=== PATIENT | male | born 1960 | race Caucasian/White ===

== ENCOUNTER 2018-07-06 07:15 | Emergency (ER) | payer OTHER ==
[2018-07-06 07:29] VITALS: BP 150/81
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
== END 2018-07-06 09:15 | disposition home or self-care (01) ==
LOC: UCEAST 07:15
DX: M75.31 Calcific tendinitis of right shoulder (principal); M19.011 Primary osteoarthritis, right shoulder; M48.02 Spinal stenosis, cervical region; F17.210 Nicotine dependence, cigarettes, uncomplicated
CPT/HCPCS: 72050; 73050; 99203; G0463

== ENCOUNTER 2018-11-10 05:27 | Day surgery (SDC) | payer OTHER ==
[~2018-11-10 05:27] MED LIST: Buffered Lidocaine 1% SYRIN* 1 ML/SYRINGE INTRADERM ONE
[2018-11-10] MEDS ORDERED: Lactated Ringers 1000 ML Bag* 1,000 ML IV SCH (06:00)
[2018-11-10] MEDS ORDERED: Dexamethasone IV* 4 MG/ML 1 ML (4 MG) IV SLOW PU ONE (06:00)
[2018-11-10] MEDS ORDERED: Famotidine IV* 10 MG/ML 2 ML (20 mg) IV ONE (06:00)
[2018-11-10] MEDS ORDERED: Dexamethasone IV* 4 MG/ML 1 ML (4 MG) ONE (06:12)
[2018-11-10] MEDS ORDERED: Famotidine IV* 10 MG/ML 2 ML (20 mg) ONE (06:12)
[2018-11-10] MEDS ORDERED: ceFAZolin 2 GM in NS PREMIX(*) 2 GM/100 ML BAG IVPB ONE (06:12)
[2018-11-10] MEDS ORDERED: Bupivacaine 0.5%* 50 ML VIAL ONE (06:45)
[2018-11-10] MEDS ORDERED: EPINEPHRINE 1 MG/ML 1 ML VIAL ONE (06:45)
[2018-11-10] MEDS ORDERED: ROPIVACAINE 5 MG/ML 30 ML BTL (0.5%) ONE (07:09)
[2018-11-10] MEDS ORDERED: fentaNYL* 50 MCG/ML 2 ML VIAL (100 MCG VIAL) ONE ×2 (07:10→07:47)
[2018-11-10] MEDS ORDERED: Midazolam* 1 MG/ML 5 ML VIAL (5 MG) ONE (07:10)
[2018-11-10] MEDS ORDERED: Atracurium* 10 MG/ML 10 ML VIAL ONE (07:10)
[2018-11-10] MEDS ORDERED: Propofol* 10 MG/ML 20 ML BTL ONE (07:11)
[2018-11-10] MEDS ORDERED: Lidocaine 2% PF * 5 ML VIAL ONE (07:11)
[2018-11-10] MEDS ORDERED: Ondansetron INJ* 2 MG/ML VIAL ONE (07:11)
[2018-11-10] MEDS ORDERED: HYDROmorphone INJ1* 1 MG/ML SYRINGE IV PRN (08:23)
[2018-11-10] MEDS ORDERED: fentaNYL* 50 MCG/ML 2 ML VIAL (100 MCG VIAL) IV PRN (08:23)
[2018-11-10] MEDS ORDERED: Ondansetron INJ* 2 MG/ML VIAL IV PRN (08:23)
[2018-11-10] MEDS ORDERED: oxyCODONE/Acetamin 5/325 MG* TAB PO PRN (08:23)
[2018-11-10] MEDS ORDERED: Naloxone* 0.4 MG/ML 1 ML VIAL IV PRN (08:23)
[2018-11-10] MEDS ORDERED: DiMENhydriNATE IV* 50 MG/ML VIAL IV PUSH PRN (08:23)
[2018-11-10 12:20] VITALS: BP 135/84
--- NOTE | 2018-11-12 02:07 | OP ---
DATE OF OPERATION: 11/10/18 - [facility] DATE OF : 64 SURGEON: Dr. Rony Longoria. INSOLE AND OUTSOLE SPLITTER: MAUDE Nichols. A physician gynecological assistant was required for the length of procedure for help with positioning, retraction, and closure. ANESTHESIOLOGIST: Dr. Lopez. ANESTHESIA: General anesthesia, regional interscalene block anesthesia. PRE-OP DIAGNOSES: 1. Right shoulder massive rotator cuff tendon retear with significant retraction. 2. History of prior right shoulder rotator cuff tendon repair, supraspinatus, open, by another surgeon. 3. Right shoulder subacromial impingement and bursitis. 4. Right shoulder acromioclavicular joint arthritis. 5. Right shoulder possible biceps tendinitis. POST-OP DIAGNOSES: 1. Right shoulder massive rotator cuff tendon retear with significant retraction, supraspinatus, infraspinatus. 2. History of prior right shoulder rotator cuff tendon repair, supraspinatus, by another surgeon. 3. Right shoulder subacromial impingement and bursitis. 4. Right shoulder acromioclavicular joint osteoarthritis. 5. Right shoulder biceps tendinitis, significant. OPERATIVE PROCEDURE: 1. Right shoulder arthroscopic rotator cuff tendon repair, massive, double row , supraspinatus, infraspinatus, with REGENETEN Page [employer] Nephew biologic patch, posterior interval slide. 2. Modifier 22 for an unusual or complex procedure. I included this because of the very retracted nature of the patient's infraspinatus tendon tear. It was very small and retracted to medial of the glenoid. By doing a significant debridement superior and inferior to the tendon as well as the posterior interval slide, I was able to mobilize it sufficiently to the humeral head. As well besides placing 5 anchors, I added a REGENETEN biologic patch. For these reasons, this was much more than a standard rotator cuff repair. 3. Right shoulder arthroscopic subacromial decompression. 4. Right shoulder arthroscopic distal clavicle resection. 5. Right shoulder arthroscopic biceps tendon release. ANTIBIOTICS: 2 g Ancef IV. IV FLUIDS: See Anesthesia note. SFJH-FM-FLUC TIME: 176 minutes. ARTHROSCOPY FLUID UTILIZED: 18 bags each with 3 L for a total of 54 L. SPECIMEN: None. IMPLANTS: Medial row consisted of Arthrex 5.5 mm anchor double loaded with FiberTape for the infraspinatus. For the supraspinatus, there were 2 medial row anchors consisting of Arthrex 5.5 mm with two FiberTape and Arthrex 4.75 mm with double-loaded FiberTape. Each of the lateral row anchors were 4.75 mm knotless anchors. I used a Page and Nephew REGENETEN biologic patch. ESTIMATED BLOOD LOSS: Minimal. COMPLICATIONS: None. 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 Pendleton. The patient had had prior rotator cuff repair on the right shoulder by Dr. Guardado in the distant past. That was of the supraspinatus. The patient works at a [employer] and is a smoker of 3 to 4 cigarettes per day. I was made sure based on the patient's MRI imaging or his exam and his history of prior surgery that he would have a repairable rotator cuff tear. Therefore, I prepared to have a superior capsular repair graft ready. I also booked him for possible rotator cuff repair. Given his smoking history and revision history, I also had a biologic patch available to supplement any rotator cuff repair performed. The patient's significant pain and weakness preoperatively and his double- tendon tear with significant retraction and his desire to continue an active lifestyle dictated that the patient preferred surgery over nonoperative management. I discussed risks and potential complications of surgery including retear of the tendon. I counseled him to cut back or eliminate his smoking. We answered all questions. DESCRIPTION OF PROCEDURE: As stated above, I consented the patient for superior capsular repair versus revision of rotator cuff repair with biologic patch as well as subacromial decompression, distal clavicle resection, and evaluation and treatment of biceps. The patient signed a written consent in the preoperative holding. I marked the operative extremity initially in preoperative holding. The patient underwent a regional interscalene block by Anesthesia. The patient was taken back to the operating room and placed supine on the operating room table. Sedated and intubated. Converted into the lateral decubitus position. Right shoulder up. Axillary roll placed. Beanbag hardened. Bony prominences padded. Right shoulder placed in longitudinal traction. Appropriate amount of forward flexion and abduction. The right shoulder was prepped and draped. Surgical time-out was performed. I entered the right shoulder glenohumeral joint from posterior with a spinal needle. I injected 30 cc of normal saline. I then established a posterior glenohumeral joint portal. I commenced my diagnostic arthroscopy. The patient was noted to have a very shredded long head of biceps tendon. He had clear significant full-thickness tears of the rotator cuff tenderness as I could see up into the subacromial space. He had some inflamed tissue on the rotator cuff interval. He had a small area of compromise of the articular cartilage about the superior humeral head, grade 1 and 2. No other significant articular cartilage lesions. No loose body. I decided to cut the biceps tendon. I cut it using arthroscopic scissors and a VAPR, at its origin. I moved to the subacromial space from posterior and anterior. I established a lateral subacromial portal and then a posterolateral portal both under direct visualization. I used an arthroscopic shaver to debride significant amounts of bursitic tissue and all the gutters and superior to the rotator cuff. This allowed improved visualization of the rotator cuff. It appeared that the infraspinatus was retracted to medial of the glenoid. The supraspinatus was retracted only part of the way towards the glenoid and it was also retracted slightly anteriorly. Using a rotator cuff grasper, the supraspinatus was able to be brought out to length to superior of the footprint on the humeral head. However, the infraspinatus at first only did so under significant tension, barely reaching the humeral head. At this point, I realized that the supraspinatus was repairable. I would not need to do a superior capsular reconstruction. However, I was not yet sure if the infraspinatus was repairable. It should be noted that when I was still within the glenohumeral joint, I established that the subscapularis was fully intact. I debrided some synovitic tissue in the rotator cuff interval with an arthroscopic shaver. In the subacromial space, I next went about freeing up both the supraspinatus and the infraspinatus. I debrided tissue of both superior and inferior of these tendons with an arthroscopic shaver and a VAPR and a switching stick. This produced some slight improved excursion of the infraspinatus. Wanting to get every additional amount of increased excursion of the infraspinatus, I next decided to do a posterior interval release between the supraspinatus and the infraspinatus. I located the scapular spine. I placed a traction stitch in the infraspinatus using an Arthrex Scorpion. The traction stitch was placed with a #2 FiberWire stitch. Infraspinatus under some tension , to protect the infraspinatus branch of the suprascapular nerve, I went about performing my posterior interval release using VAPR electrocautery. This produced some additional excursion. I was able to bring the infraspinatus to bone. I decided that it was repairable, although I was not yet sure how much tension it would be under with the repair. I placed a cannula laterally. I made a superolateral poke hole and placed a 5.5 mm double-loaded anchor in the medial most aspect of the infraspinatus footprint on the humeral head. I then used an Arthrex Scorpion to pass two horizontal mattress stitches in the infraspinatus. This nicely brought tendon to bone and it did not appear as though the tendon was in significant tension position. I was very happy with this repair. I next started the supraspinatus repair. It should be stated that prior to this , I prepared the footprints of both tendons on bone with VAPR electrocautery followed by an arthroscopic marian to best assure good healing. I placed 2 Arthrex anchors in the supraspinatus footprint medial edge. The posterior anchor was slightly more lateral than the anterior anchor to maximize distance between them. I used Arthrex Scorpion to pass 2 horizontal mattress stitches into the supraspinatus. I passed all sutures before tying my horizontal mattress stitches. With tendon brought nicely to bone, I then embarked on my lateral row anchors. I used sutures taken from more posterior in the medial row and placed them into a knotless lateral row anchor that was placed more anteriorly. I used an extra suture from this anchor to place a simple stitch in the anterior most margin of the supraspinatus. I then took sutures from more anterior in the medial row and placed them into the more posterior lateral row anchor. I . I probed it and rotated the shoulder. It looked very stable. I was very happy with it. With the double-row repair performed, the tendons were adjacent to each other and I decided to place a [id number] stitch to increase the strength of the repair. Probing the infraspinatus, it had laxity to it and was not under too much tension and I was very happy about this. This was true throughout a range of motion, rotationally of the shoulder. Using a retrograde suture passers, I passed a simple stitch, side to side between the supraspinatus and infraspinatus. This nicely brought the tendons together. I next decided to augment the repair given the patient's history of prior rotator cuff surgery, his smoking status, and the severe large nature of this tear. I therefore made a new portal superolaterally and passed a medium-sized graft over the supraspinatus. I held it in place with multiple eri, PLLA, through the patch into the tendon. I used 1 metal anchor through the patch into the humeral head. I was very happy with the stability and the patch through a range of motion. After the rotator cuff repair but before the patch was placed, I performed a subacromial decompression using an arthroscopic marian to smooth out the anterior curve to the undersurface of the acromion. After I applied the patch, I performed a distal clavicle resection removing 8 mm of the distal end of the clavicle with an arthroscopic marian. It should be stated that close to the start of my rotator cuff repair, I attempted to include the biceps in the rotator cuff repair using a retrograde suture passer to pass stitch through the proximal most aspect of the biceps tendon where it retracted to the superior most aspect of the bicipital groove. However, the stitch I placed pulled right through the biceps tendon because it was of such poor quality. At that point, I decided that the repair arthroscopically with strength was not feasible and that I would just do a biceps release. After completing the distal clavicle resection, we removed instruments and fluid from the subacromial space. I closed the skin incisions with figure-of- eight and 12 stitches using nylon 3.0 suture. Xeroform, 4x4s, ABDs, foam tape. DISPOSITION: The patient was extubated and brought to the PACU. Wound care instructions were provided. Percocet as needed for pain control and Keflex times several days for infection prophylaxis. The patient was to remain in sling at all times. The patient will not start physical therapy until at least after his first clinic visit but probably until 6 weeks postoperative. It should be noted that I received a call later today from the emergency room. The patient had gone there because of some drainage from his dressing. I spoke with the PACU who had recently discharged the patient and coordinated the patient to be seen by me in clinic. Here, we noted some saturation of the patient's dressing. We placed a new addressing and instructed him with the same wound care instructions, to keep that dressing on for 3 days postoperatively before his next change. [id number]/[facility] #: [id number] PAUL
== END 2018-11-10 12:21 | disposition home or self-care (01) ==
LOC: OR 05:27
PROVIDERS: ATTEND Orthopaedic Surgery
DX: S46.011A Strain of muscle(s) and tendon(s) of the rotator cuff of right shoulder, initial encounter (principal); F17.210 Nicotine dependence, cigarettes, uncomplicated; W01.0XXA Fall on same level from slipping, tripping and stumbling without subsequent striking against object, initial encounter; Y92.89 Other specified places as the place of occurrence of the external cause; Y99.0 Civilian activity done for income or pay; G89.18 Other acute postprocedural pain; M75.41 Impingement syndrome of right shoulder; M75.51 Bursitis of right shoulder; M19.011 Primary osteoarthritis, right shoulder; M75.21 Bicipital tendinitis, right shoulder
CPT/HCPCS: C1713; J0690; J1100; J2250; J2405; J2704; J2795; J3010